=== PATIENT | male | born 2000 | race Caucasian/White ===

== ENCOUNTER 2021-02-03 14:26 | Emergency (ER) | payer SELFPAY ==
[~2021-02-03] VITALS: Ht 188 cm; Wt 113.0 kg
[2021-02-03 14:42] VITALS: BP 140/75
[2021-02-03 15:22] LABS: BASO % 0 % (0-3); EOS # 0.1 x10^3/uL (0.0-0.7); EOS % 1 % (0-3); HEMATOCRIT 37.7 % (39.0-53.0); HEMOGLOBIN 12.5 g/dL (13.0-17.5); LYMPH % 41 % (24-48); MEAN CORPUSCULAR HEMOGLOBIN 29 pg (25-35); MEAN CORPUSCULAR HGB CONC 33 g/dL (31-37); MEAN CORPUSCULAR VOLUME 87 fL (79-100); MONO # 0.8 x10^3/uL (0.0-1.1); MONO % 6 % (0-9); NEUT # 6.3 x10^3uL (1.8-7.7); NEUT % 51 % (31-73); PLATELET COUNT 299 x10^3/uL (140-400); RED BLOOD COUNT 4.32 x10^6/uL (4.30-5.70); RED CELL DISTRIBUTION WIDTH 15.3 % (11.5-14.5); WHITE BLOOD COUNT 12.3 x10^3/uL (4.0-11.0)
--- NOTE | 2021-02-03 15:49 | RAD ---
INDICATION: Reason: left calf swelling and pain / Spl. Instructions: / History: COMPARISON: None. TECHNIQUE: Grayscale, color and doppler ultrasound images were obtained of the left lower extremity v enous vasculature. LEFT: No thrombus identified in the common femoral vein, femoral vein, popliteal vein or visualized calf ve ins. IMPRESSION: * No thrombus identified in deep venous system of the left lower extremity. Electronically signed by: Romeo Hernandez MD (02/03/2021 3:47 PM) [id number]
[2021-02-03 15:52] LABS: CALCIUM 8.5 mg/dL (8.5-10.1); CREATININE 0.9 mg/dL (0.7-1.3); GFR 104.6; POTASSIUM 3.9 mmol/L (3.5-5.1)
--- NOTE | 2021-02-03 16:14 | PHYS DOC ---
Past History Past Medical History: No Pertinent History Alcohol Use: None Adult General Chief Complaint Chief Complaint: LOWER EXT PAIN HPI HPI Patient is a 21-year-old male, vital signs reviewed, presents emergency department with chief complaint of left calf cramping that started last night while he was sleeping, patient states it woke him up from bed, patient states the cramps went away after about 5 minutes. Patient states that he noticed his left calf was swollen approximately 2 hours later when he got up to go to work. Patient states he was concerned about the swelling and pain in the back of his calf and went to see his work comp doctor who told him she was concerned he may have a blood clot and recommended he come to the emergency department right away. Patient denies any history of blood clots, states he is not on any prescription medications, does not smoke cigarettes drink alcohol use illicit drugs, has an allergy to penicillin, does not have a primary care provider. Patient denies chest pain, shortness of breath, chest congestion, recent fever or chills, or rashes of the skin. Patient denies any numbness or tingling to his upper or lower extremities. Patient denies any increased thirst or increased urination. Patient denies any other physical complaints or physical concerns. Patient reports his calf pain at a 5 out of 10 pain. Review of Systems Review of Systems 14 body systems of review of systems have been reviewed. See HPI for pertinent positives and negative responses, otherwise all other systems are negative, nonpertinent or noncontributory. Physical Exam Physical Exam Constitutional: Well developed, well nourished, no acute distress, non-toxic appearance. 21-year-old male in no apparent distress. HENT: Normocephalic, atraumatic. Eyes: Conjunctiva normal, no discharge. Neck: Normal range of motion. Cardiovascular: No cyanosis appreciated, distal cap refill less than 2 seconds. Lungs & Thorax: Patient is in no respiratory distress, no audible adventitious lung sounds appreciated. Skin: Warm, dry, no erythema, no rash. Extremities: No tenderness, no cyanosis, no clubbing, ROM intact, no edema. Ex cept for left lower extremity calf area, pain to palpation along mid calf, positive Homans' sign, no swelling was appreciated, no difference in measurement between left and right calf, distal cap refill is less than 2 seconds, 2+ dorsalis pedis/posterior tibial pulses, there is no edema appreciated. No loss of sensation, full AROM/PROM of knee and ankle joint. Neurologic: Alert and oriented X 3, normal motor function, normal sensory function, no focal deficits noted. Psychologic: Affect normal, judgement normal, mood normal. Current Patient Data Vital Signs Vital Signs Date Time Temp Pulse Resp B/P (MAP) Pulse Ox O2 Delivery O2 Flow Rate FiO2 02/03/21 14:42 98.6 16 140/75 (96) Room Air Lab Results Laboratory Tests Test 02/03/21 15:08 White Blood Count 12.3 x10^3/uL (4.0-11.0) H Red Blood Count 4.32 x10^6/uL (4.30-5.70) Hemoglobin 12.5 g/dL (13.0-17.5) L Hematocrit 37.7 % (39.0-53.0) L Mean Corpuscular Volume 87 fL (79-100) Mean Corpuscular Hemoglobin 29 pg (25-35) Mean Corpuscular Hemoglobin Concent 33 g/dL (31-37) Red Cell Distribution Width 15.3 % (11.5-14.5) H Platelet Count 299 x10^3/uL (140-400) Neutrophils (%) (Auto) 51 % (31-73) Lymphocytes (%) (Auto) 41 % (24-48) Monocytes (%) (Auto) 6 % (0-9) Eosinophils (%) (Auto) 1 % (0-3) Basophils (%) (Auto) 0 % (0-3) Neutrophils # (Auto) 6.3 x10^3uL (1.8-7.7) Lymphocytes # (Auto) 5.0 x10^3/uL (1.0-4.8) H Monocytes # (Auto) 0.8 x10^3/uL (0.0-1.1) Eosinophils # (Auto) 0.1 x10^3/uL (0.0-0.7) Basophils # (Auto) 0.0 x10^3/uL (0.0-0.2) Sodium Level 141 mmol/L (136-145) Potassium Level 3.9 mmol/L (3.5-5.1) Chloride Level 105 mmol/L (98-107) Carbon Dioxide Level 28 mmol/L (21-32) Anion Gap 8 (6-14) Blood Urea Nitrogen 17 mg/dL (8-26) Creatinine 0.9 mg/dL (0.7-1.3) Estimated GFR (Cockcroft-Gault) 104.6 Glucose Level 103 mg/dL (70-99) H Calcium Level 8.5 mg/dL (8.5-10.1) Creatine Kinase 322 U/L (39-308) H Creatine Kinase MB (Mass) 5.0 ng/mL (0.0-3.6) H Creatine Kinase MB Relative Index 1.6 % (0-4) EKG EKG [] Radiology/Procedures Radiology/Procedures PATIENT: MALLORIE SHARIFOUNT: [id number] : 2000 LOCATION: ER AGE: 21 SEX: M EXAM STATUS: REG ER ORD. PHYSICIAN: EDDI MYERS APRN REASON: left calf swelling and pain PROCEDURE: VENOUS LOWER EXTREMITY LEFT INDICATION: Reason: left calf swelling and pain / Spl. Instructions: / History: COMPARISON: None. TECHNIQUE: Grayscale, color and doppler ultrasound images were obtained of the left lower extremity venous vasculature. LEFT: No thrombus identified in the common femoral vein, femoral vein, popliteal vein or visualized calf veins. IMPRESSION: * No thrombus identified in deep venous system of the left lower extremity. Electronically signed by: Zakiya Hernandez MD (02/03/2021 3:47 PM) [id number] DICTATED AND SIGNED BY: ZAKIYA HERNANDEZ MD DATE: 02/03/21 1546 CC: EDDI MYERS APRN; PCP,NO ~MTH0 0 Heart Score C/O Chest Pain: No Risk Factors: Risk Factors: DM, Current or recent (<one month) smoker, HTN, HLP, family history of CAD, obesity. Risk Scores: Risk Factors: DM, Current or recent (<one month) smoker, HTN, HLP, family history of CAD, obesity. Course & Med Decision Making Course & Med Decision Making Pertinent Labs and Imaging studies reviewed. (See chart for details) 21-year-old male, vital signs reviewed, presents emergency department concerning left calf pain and stating his work comp doctor sent him here to rule out a DVT. Physical examination was unremarkable, patient did complain of pain to the left calf with palpation and a positive Homans' sign however patient's complaint of pain and level of pain exceeds patient's physical presentation. With relation to patient's reporting his work comp doctor sent him here for rule out of DVT, a sonogram ultrasound of left lower extremity was ordered, CBC, BMP, creatinine kinase. Patient's labs nonconcerning, sonogram of left lower extremity read negative for DVT per house radiologist interpretation. Discussed findings with patient, di agnosis of muscle cramping, may use [id number] Tylenol or Motrin for ongoing aches and pains. Patient gave verbal understanding of discharge home instructions, follow-up with PCP soon, return to ER precautions or concerns, patient states he is relieved knowing he does not have a blood clot in his leg, patient was discharged home without incident. Dragon Disclaimer Dragon Disclaimer This electronic medical record was generated, in whole or in part, using a voice recognition dictation system. Departure Departure: Impression: Primary Impression: Muscle cramp Disposition: 01 HOME / SELF CARE / HOMELESS Condition: GOOD Referrals: PCP,NO (PCP) Patient Instructions: Leg Cramps Additional Instructions: You were seen today in the emergency department for a cramp of your left calf, you had indicated you seeing your work comp doctor who was concerned it may be a blood clot in your leg. A sonogram of your vessels of your left leg was performed, there were no blood clots appreciated. Your blood lab work did not indicate any abnormalities that were concerning that would require a hospitalization, your blood work did not indicate any dehydration. Sometimes muscle cramping can be relieved by staying well-hydrated especially during the hot summer months. Please follow-up with your primary care physician for ongoing muscle cramping problems, you may consider using the [facility] practice group located at [facility] [place] [address] [place] [address] area code [phone]. As we discussed you may use [id number] Tylenol and/or Motrin for ongoing aches and pains. Please return to the emergency department for worsening symptoms or other concerns. EMERGENCY DEPARTMENT GENERAL DISCHARGE INSTRUCTIONS Thank you for coming to [facility] (ED) today and trusting us with you care. We trust that you had a positivie experience in our Emergency Department. If you wish to speak to the department management, you may call the director at [phone]. YOUR FOLLOW UP INSTRUCTIONS ARE FOLLOWS: 1. Do you have a private Doctor? If you do not have a private doctor, please ask for a resource list of physicians or clinics that may be able to assist you with follow up care. 2. The Emergency Physician has interpreted your x-rays. The X-Ray specialist will also review them. If there is a change in the findings, you will be notified in 48 hours when at all possible. 3. A lab test or culture has been done, your results will be reviewed and you will be notified if you need a change in treatment. ADDITIONAL INSTRUCTIONS AND INFORMATION: 1. Your care today has been supervised by a physician who is specially trained in emergency care. Many problems require more than one evaluation for a complete diagnosis and treatment. We recommend that you schedule your follow up appointment as recommended to ensure complete treatment of you illness or injury. If you are unable to obtain follow up care and continue to have a problem, or if your condition worsens, we recommend that you return to the ED. 2. We are not able to safely determine your condition over the phone nor are we able to give sound medical advice over the phone. For these safety reasons, if you call for medical advice we will ask you to come to the ED for further evaluation. 3. If you have any questions regarding these discharge instructions please call the ED at [phone]. SAFETY INFORMATION: In the interest of safety, wellness, and injury prevention; we encourage you to wear your sealbelt, if you smoke; quite smoking, and we encourage family to use a pr otective helmet for bicycling and other sporting events that present an increased risk for head injury. IF YOUR SYMPTOMS WORSEN OR NEW SYMPTOMS DEVELOP, OR YOU HAVE CONCERNS ABOUT YOUR CONDITION; OR IF YOUR CONDITION WORSENS WHILE YOU ARE WAITING FOR YOUR FOLLOW UP APPOINTMENT; EITHER CONTACT YOUR PRIMARY CARE DOCTOR, THE PHYSICIAN WHOSE NAME AND NUMBER YOU WERE GIVEN, OR RETURN TO THE ED IMMEDIATELY. EDDI MYERS APRN Feb 03, 2021 16:14
== END 2021-02-03 16:23 | disposition home or self-care (01) ==
LOC: ER 14:26
DX: R25.2 Cramp and spasm (principal); R22.42 Localized swelling, mass and lump, left lower limb; M79.662 Pain in left lower leg
CPT/HCPCS: 36415; 80048; 82553; 85025; 93971; 99284